=== PATIENT | male | born 1985 | race Caucasian/White ===

== ENCOUNTER 2016-12-10 22:11 | Emergency (ER) | payer MEDICAID ==
[~2016-12-10 22:11] MED LIST: AMOXICILLIN875 MG PO; BACTRIM DS TAB1 EAC2 PO; GUIATUSS AC SY120 ML PO; LOTRIMIN ULTRA12 GM TP; TMP-POLYMYXIN B10 ML OP
[2016-12-10] MEDS ORDERED: NO HOME MEDICATION XX (22:27)
[2016-12-10] MEDS ORDERED: ULTRAM50 M1 PO (22:39)
== END 2016-12-10 22:20 ==
LOC: EDMED 22:11
DX: K03.81 Cracked tooth (principal); Z87.891 Personal history of nicotine dependence